=== PATIENT | male | born 1940 | race Caucasian/White ===

== ENCOUNTER 2023-06-23 17:26 | Emergency (ER) | payer MEDICARE, OTHER ==
[~2023-06-23] VITALS: Ht 170.2 cm; Wt 103.2 kg
[2023-06-23] MEDS: TETanus/Pertussis (Acell)/Diphther VAC/PF (Tdap-Adult) 0.5ml syringe IMVAC ONE (18:27)
[2023-06-23 18:36] VITALS: BP 127/77; PULSE 71; RESP 16; TEMP 98; O2SAT 93
== END 2023-06-23 18:37 | disposition home or self-care (01) ==
LOC: ER 17:27
DX: S61.402A Unspecified open wound of left hand, initial encounter (principal); Z88.8 Allergy status to other drugs, medicaments and biological substances; X58.XXXA Exposure to other specified factors, initial encounter; Y93.89 Activity, other specified; Y92.89 Other specified places as the place of occurrence of the external cause; Y99.8 Other external cause status
CPT/HCPCS: 90471; 90715; 99283; J7030; A6258; A6449